=== PATIENT | male | born 1940 | race African-American/Black ===

== ENCOUNTER 2018-05-22 21:43 | Emergency (ER) | payer MEDICARE, MEDICAID ==
[~2018-05-22] VITALS: Ht 185.4 cm; Wt 81.8 kg
[2018-05-22 21:48] VITALS: Ht 185.4 cm; Wt 81.8 kg
[2018-05-22 22:51] LABS: BASOPHILS 0 % (0-2); EOSINOPHILS 0.6 % (0-7); HEMATOCRIT 39.8 % (42.0-54.0); HEMOGLOBIN 13.1 g/dL (13.5-17.5); IMMATURE GRANULOCYTES 0.4 % (0-5); LYMPHOCYTES 16.2 % (15-50); MCH 27.8 pg (26.0-34.0); MCHC 32.9 g/dL (31.0-37.0); MCV 84.5 fL (80.0-100.0); MEAN PLATELET VOLUME 9.7 fL (7.4-10.4); MONOCYTES 4.5 % (2-11); NEUTROPHILS 78.3 % (40-80); PLATELET COUNT 136 10x3/uL (130-400); RBC 4.71 10x6/uL (4.20-6.10); RDW 13.9 % (11.5-14.5); WBC 5.4 10x3/uL (4.8-10.8)
[2018-05-22 23:02] LABS: ALBUMIN 3.6 g/dL (3.4-5.0); ANION GAP 10.3 mmol/L (8-16); BILIRUBIN - TOTAL 0.28 mg/dL (0.2-1.3); CALCIUM 8.6 mg/dL (8.5-10.1); CARBON DIOXIDE 29.7 mmol/L (21.0-32.0); CREATININE - SERUM 1.1 mg/dL (0.6-1.3); PROTEIN - SERUM 7.7 g/dL (6.4-8.2)
[2018-05-22 23:31] VITALS: BP 161/92
== END 2018-05-22 23:42 | disposition home or self-care (01) ==
LOC: D.ER 21:43
PROVIDERS: Family Medicine
DX: I10 Essential (primary) hypertension (principal); Z91.14 Patient's other noncompliance with medication regimen

== ENCOUNTER 2018-10-14 07:49 | Emergency (ER) | payer MEDICARE, MEDICAID ==
[~2018-10-14] VITALS: Ht 185.4 cm; Wt 88.6 kg
[2018-10-14 07:52] VITALS: BP 125/70; Ht 185.4 cm; Wt 88.6 kg
[2018-10-14] MEDS ORDERED: BENICAR5 MG PO (07:56)
[2018-10-14] MEDS ORDERED: ELIQUIS5 MG PO (07:57)
== END 2018-10-14 08:40 | disposition home or self-care (01) ==
LOC: D.ER 07:49
DX: M79.662 Pain in left lower leg (principal)

== ENCOUNTER 2020-06-12 22:51 | Emergency (ER) | payer OTHER, MEDICAID ==
[~2020-06-12] VITALS: Ht 185.4 cm; Wt 86.4 kg
[~2020-06-12 22:51] MED LIST: BENICAR5 MG PO; ELIQUIS5 MG PO
[2020-06-12 22:59] VITALS: BP 138/85; Ht 185.4 cm; Wt 86.4 kg
[2020-06-12] MEDS ORDERED: GLUCOPHAGE500 MG PO (23:02)
== END 2020-06-12 23:45 | disposition home or self-care (01) ==
LOC: D.ER 22:51
DX: H57.13 Ocular pain, bilateral (principal); I10 Essential (primary) hypertension